=== PATIENT | female | born 1985 | race Caucasian/White ===

== ENCOUNTER 2017-06-29 17:00 | Emergency (ER) | payer SELFPAY ==
[~2017-06-29] VITALS: Ht 162.6 cm; Wt 56.0 kg
[~2017-06-29 17:00] MED LIST: DARV PO; IBUP-238 PO; Micronor PO; PREN0.01 PO
[2017-06-29 17:31] VITALS: BP 109/74; PULSE 88; RESP 18; TEMP 98.6; O2SAT 99
[2017-06-29] MEDS ORDERED: ALPR.25 PO (18:02)
--- NOTE | 2017-06-29 18:02 | RADRPT ---
EXAM DATE/TIME: 06/29/2017 17:59 [facility] COMPARISON: No previous studies available for comparison. INDICATIONS : Chest pain. MEDICAL HISTORY : None. SURGICAL HISTORY : None. ENCOUNTER: Initial ACUITY: 1 day PAIN SCORE: 4/10 LOCATION: Bilateral chest FINDINGS: Ringlike density with a lucent center Wilber over the right upper lobe, potentially related to the s econd rib versus a cavitary pulmonary nodule. CT of the chest is recommended without contrast. No infiltrate, effusion or pneumothorax. Heart size within normal limits. CONCLUSION: Possible right upper lobe pulmonary nodule and CT of the chest without contrast is recommended. The l ungs are otherwise clear. Evens Cartagena MD on June 29, 2017 at 18:00 Board Certified Radiologist. This report was verified electronically.
[2017-06-29 18:06] LABS: AUTOMATED NEUTROPHIL # 5.3 TH/MM3 (1.8-7.7); BASOPHIL % 0.5 % (0.0-2.0); EOSINOPHIL % 0.2 % (0.0-4.0); HEMO FLAGS DIFF FINAL; LYMPH % 15.3 % (9.0-44.0); LYMPHOCYTE # 1.1 TH/MM3 (1.0-4.8); MEAN CELL VOLUME 98.7 FL (80.0-100.0); MEAN CORPUSCULAR HEMOGLOBIN 33.4 PG (27.0-34.0); MEAN CORPUSCULAR HGB CONC 33.8 % (32.0-36.0); MONO % 7.4 % (0.0-8.0); NEUT % 76.6 % (16.0-70.0); PLATELET COUNT 298 TH/MM3 (150-450); RED BLOOD COUNT 3.85 MIL/MM3 (4.00-5.30); RED CELL DISTRIBUTION WIDTH 13.2 % (11.6-17.2)
--- NOTE | 2017-06-29 18:28 | PD ---
HPI Chief Complaint: Chest Pain Time Seen by Provider: 17:30 Travel History International Travel<30 days: No Contact w/Intl Traveler<30days: No Traveled to known affect area: No History of Present Illness HPI This is a 32-year-old female with a history of anxiety disorder, presents today with points of chest pain. The patient reports the pain as burning in her epigastrium. She states it comes and goes. She states that she's had it for quite some time now. She denies any exertional component. She denies any shortness of breath. She does report that she gets palpitations with this discomfort. The patient denies any tobacco history. She denies any history of hypertension, hyperlipidemia, diabetes mellitus. There is no reported family history of heart disease. The patient has no risk factors for PE. She denies any tobacco use, she denies any estrogen use, she denies any long car rides or long plane rides. She denies any previous injury to her bilateral lower extremities or previous blood clots. PFSH Past Medical History ?: Unknown LMP: NOW Social History Alcohol Use: Yes Tobacco Use: No Substance Use: No Allergies-Medications (Allergen,Severity, Reaction): Coded Allergies: No Known Allergies (Verified , 05/13/10) Reported Meds & Prescriptions Reported Meds & Active Scripts Active Ativan (Lorazepam) 0.5 Mg Tab 0.5 Mg PO Q12HR PRN Reported Xanax (Alprazolam) 0.25 Mg Tab 0.25 Mg PO Q4H PRN Review of Systems Except as stated in HPI: all other systems reviewed are Neg General / Constitutional: No: Fever, Chills HENT: No: Headaches, Lightheadedness, Neck Pain Cardiovascular: Positive: Chest Pain or Discomfort, Palpitations, No: Irregular Rhythm, Tachycardia Respiratory: No: Cough, Shortness of Breath Gastrointestinal: No: Nausea, Vomiting, Abdominal Pain Genitourinary: No: Frequency, Vaginal Bleeding Musculoskeletal: No: Weakness, Edema, Pain Skin: No Rash, No Itching Neurologic: No: Weakness, Dizziness, Headache Physical Exam Narrative GENERAL: Well-developed well nourished female in no acute distress. SKIN: Focused skin assessment warm/dry. HEAD: Atraumatic. Normocephalic. EYES: No scleral icterus. No injection or drainage. ENT: No nasal bleeding or discharge. Mucous membranes pink and moist. NECK: Trachea midline. Supple. CARDIOVASCULAR: Regular rate and rhythm. No murmur appreciated. RESPIRATORY: No accessory muscle use. Clear to auscultation. Breath sounds equal bilaterally. GASTROINTESTINAL: Abdomen soft, non-tender, nondistended. Hepatic and splenic margins not palpable. MUSCULOSKELETAL: No obvious deformities. No clubbing. No cyanosis. No edema. NEUROLOGICAL: Awake and alert. No obvious cranial nerve deficits. Motor grossly within normal limits. Normal speech. Data Data Last Documented VS Vital Signs Date Time Temp Pulse Resp B/P (MAP) Pulse Ox O2 Delivery O2 Flow Rate FiO2 06/29/17 17:54 100 Room Air 06/29/17 17:31 98.6 88 18 109/74 (86) Orders Orders Electrocardiogram (06/29/17 17:37) Complete Blood Count With Diff (06/29/17 17:37) Basic Metabolic Panel (Bmp) (06/29/17 17:37) Ckmb (Isoenzyme) Profile (06/29/17 17:37) Troponin I (06/29/17 17:37) Chest, Single Ap (06/29/17 17:37) Iv Access Insert/Monitor (06/29/17 17:37) Electrocardiogram (06/29/17 18:39) Potassium Chloride (Kcl) (06/29/17 19:00) Labs Laboratory Tests Test 06/29/17 17:50 White Blood Count 7.0 TH/MM3 Red Blood Count 3.85 MIL/MM3 Hemoglobin 12.8 GM/DL Hematocrit 38.0 % Mean Corpuscular Volume 98.7 FL Mean Corpuscular Hemoglobin 33.4 PG Mean Corpuscular Hemoglobin Concent 33.8 % Red Cell Distribution Width 13.2 % Platelet Count 298 TH/MM3 Mean Platelet Volume 8.0 FL Neutrophils (%) (Auto) 76.6 % Lymphocytes (%) (Auto) 15.3 % Monocytes (%) (Auto) 7.4 % Eosinophils (%) (Auto) 0.2 % Basophils (%) (Auto) 0.5 % Neutrophils # (Auto) 5.3 TH/MM3 Lymphocytes # (Auto) 1.1 TH/MM3 Monocytes # (Auto) 0.5 TH/MM3 Eosinophils # (Auto) 0.0 TH/MM3 Basophils # (Auto) 0.0 TH/MM3 CBC Comment DIFF FINAL Differential Comment Blood Urea Nitrogen 16 MG/DL Creatinine 0.83 MG/DL Random Glucose 94 MG/DL Calcium Level 8.8 MG/DL Sodium Level 141 MEQ/L Potassium Level 3.4 MEQ/L Chloride Level 107 MEQ/L Carbon Dioxide Level 25.7 MEQ/L Anion Gap 8 MEQ/L Estimat Glomerular Filtration Rate 80 ML/MIN Total Creatine Kinase 40 U/L Troponin I LESS THAN 0.02 NG/ML MDM Medical Decision Making Medical Screen Exam Complete: Yes Emergency Medical Condition: Yes Differential Diagnosis ACS versus GERD versus anxiety Narrative Course This is a 32-year-old female who presents today with complaints of palpitations and chest pain. Patient reports it as a burning sensation in her epigastrium and substernal area. The patient also reports associated palpitations when she has this discomfort. The patient does report having anxiety for which she takes Xanax. Discussed with her that Xanax often causes an acute onset and offset. I stated if she has chronic anxiety she should likely be taking something is longer acting. EKG and cardiac enzymes show no evidence of acute findings. She does have a potassium of 3.4. She's been given 10 mEq of potassium chloride times one dose. She'll be discharged with a prescription for Ativan and told not to drink alcohol or take Xanax while taking this medication. She states she will follow up with her primary care doctor, Dr. Wynn, for an outpatient stress test. I did offer to put her chest pain center however she has elected not to stay and will follow up as an outpatient with Dr. Wynn. I did recommend increasing her potassium rich foods including bananas, green leafy vegetables and citrus. She is instructed to avoid drinking 3-4 beers at night. She is also instructed to follow up with a counselor for her anxiety. She will be given a prescription for Ativan, 0.5 mg , total of 14 tablets. She is instructed that she'll need to get further refills from her primary care physician. Diagnosis Primary Impression: Atypical chest pain Additional Impressions: mild hypokalemia. Anxiety disorder Additional Instructions: Do not drink alcohol or take Xanax all taking Ativan. The membrane Ativan is a longer acting benzodiazepine and will be in her system longer than the Xanax. Follow up with her primary care physician for further cardiac outpatient testing. Return if not feeling well or any other reason that concerned her. Thank you for choosing [facility], we know you have a choice and healthcare. Med/Other Pt SpecificInfo: Prescription(s) given Scripts Lorazepam (Ativan) 0.5 Mg Tab 0.5 MG PO Q12HR Y for ANXIETY AND/OR AGITATION, #14 TAB 0 Refills Prov: Darin Vega MD 06/29/17 Disposition: 01 DISCHARGE HOME Condition: Stable Darin Vega MD Jun 29, 2017 18:28
[2017-06-29 18:31] LABS: ANION GAP 8 MEQ/L (5-15); BICARBONATE 25.7 MEQ/L (21.0-32.0); BLOOD UREA NITROGEN 16 MG/DL (7-18); CHLORIDE 107 MEQ/L (98-107); GLOMERULAR FILTRATION RATE 80 ML/MIN (>89); POTASSIUM 3.4 MEQ/L (3.5-5.1); SODIUM (NA) 141 MEQ/L (136-145)
[2017-06-29 18:36] LABS: CREATINE KINASE 40 U/L (26-192)
[2017-06-29] MEDS ORDERED: LORA-392 PO (18:58)
[2017-06-29] MEDS ORDERED: POTASSIUM CHLORIDE 10 MEQ CONTROLLED RELEASE TAB PO ONE (19:00)
[2017-06-29 19:01] VITALS: BP 121/63
--- NOTE | 2017-06-30 14:31 | EKG ---
Date Performed: 06/29/2017 Time Performed: 18:43:14 PTAGE: 32 years EKG: Sinus rhythm NORMAL ECG Compared to prior tracing no significant change PREVIOUS TRACING DOCTOR: Austin Harding Interpretating Date/Time 06/30/2017 14:30:12
--- NOTE | 2017-06-30 17:54 | EKG ---
Date Performed: 06/29/2017 Time Performed: 17:13:35 PTAGE: 32 years EKG: Sinus rhythm NORMAL EKG NO PREVIOUS TRACING DOCTOR: Austin Harding Interpretating Date/Time 06/30/2017 17:53:38
== END 2017-06-29 19:30 | disposition home or self-care (01) ==
LOC: NEPC 17:00
DX: R07.89 Other chest pain (principal); E87.6 Hypokalemia; F41.9 Anxiety disorder, unspecified
CPT/HCPCS: 71010; 80048; 82550; 84484; 85025; 93005; 99285

== ENCOUNTER 2017-10-29 18:52 | Emergency (ER) | payer OTHER ==
[~2017-10-29 18:52] MED LIST changes: +ALPR.25 PO; -DARV PO; -IBUP-238 PO; +LORA-392 PO; -Micronor PO; -PREN0.01 PO
[2017-10-29 18:53] VITALS: BP 124/67; PULSE 104; RESP 16; TEMP 97.9; O2SAT 100
--- NOTE | 2017-10-29 22:44 | RADRPT ---
EXAM DATE/TIME: 10/29/2017 22:20 [facility] COMPARISON: No previous studies available for comparison. INDICATIONS : Headache. RADIATION DOSE: 35.95 CTDIvol (mGy) MEDICAL HISTORY : None SURGICAL HISTORY : None. ENCOUNTER: Initial ACUITY: 1 day PAIN SCALE: 6/10 LOCATION: cranial TECHNIQUE: Multiple contiguous axial images were obtained of the head. Using automated exposure control and adj ustment of the mA and/or kV according to patient size, radiation dose was kept as low as reasonably a chievable to obtain optimal diagnostic quality images. DICOM format image data is available electro nically for review and comparison. FINDINGS: CEREBRUM: The ventricles are normal for age. No evidence of midline shift, mass lesion, hemorrhage or acute in farction. No extra-axial fluid collections are seen. POSTERIOR FOSSA: The cerebellum and brainstem are intact. The 4th ventricle is midline. The cerebellopontine angle i s unremarkable. EXTRACRANIAL: The visualized portion of the orbits is intact. SKULL: The calvaria is intact. No evidence of skull fracture. CONCLUSION: 1. No acute intracranial abnormalities. Arun Dior MD on October 29, 2017 at 22:41 Board Certified Radiologist. This report was verified electronically.
--- NOTE | 2017-10-29 23:05 | PD ---
HPI Chief Complaint: Headache Time Seen by Provider: 21:27 Travel History International Travel<30 days: No Contact w/Intl Traveler<30days: No Traveled to known affect area: No History of Present Illness HPI 32-year-old female presents to the emergency department for headache since Wednesday. Patient rates her headache 7-8/10 in intensity. Patient is smiling and animated and talking to friends who is at bedside. Patient reports she is asked she had headache longer than 2-3 days that she's had this for several months or longer. Patient was seen by her primary care provider who identified that she might have a sinus infection and placed her on a seven-day course of Bactrim which she completed on 26 October. Patient states that she also denied any intention in her scalp about the same time that she started the antibiotic and that the intention has improved since starting the antibiotic. Patient states she took a one-time dose of ibuprofen 800 mg yesterday with minimal response and has taken this before with improved response but because of the minimal response this today decided follow today to come to the emergency room to be evaluated. Headache is not sudden onset not thunderclap not worst ever. Patient denies any photophobia or phonophobia or arm. No family members with history of headache or subarachnoid hemorrhage. Patient denies any fever or chills. Patient denies . Patient is unable to identify exacerbating or alleviating factors. Patient's had no nausea or vomiting. Patient denies neck pain or stiffness. Patient denies injury. PFSH Past Medical History Narrative Medical Anxiety 1 para 1 AB 0 occasional alcohol use: Nursing notes reviewed Anxiety: Yes (last attack 07/09/17-no meds since 08/10) Headaches: Yes (ongoing for 1 month but increased this week 10/29/17) Tetanus Vaccination: Unknown Influenza Vaccination: No ?: Not LMP: 09/28/17 : 1 Para: 1 Miscarriage: 0 : 0 Past Surgical History Surgical History: No Previous Surgery Social History Alcohol Use: Yes (socially; last drink 3wks) Tobacco Use: No Substance Use: No Allergies-Medications (Allergen,Severity, Reaction): Coded Allergies: No Known Allergies (Verified , 05/13/10) Reported Meds & Prescriptions Reported Meds & Active Scripts Active Ativan (Lorazepam) 0.5 Mg Tab 0.5 Mg PO Q12HR PRN Reported Xanax (Alprazolam) 0.25 Mg Tab 0.25 Mg PO Q4H PRN Review of Systems Except as stated in HPI: all other systems reviewed are Neg Physical Exam Narrative GENERAL: Well-developed well-nourished female in no acute distress no respiratory distress; GCS 15 SKIN: Warm and dry. HEAD: Atraumatic. Normocephalic. EYES: Pupils equal and round. No scleral icterus. No injection or drainage. ENT: No nasal bleeding or discharge. Mucous membranes pink and moist. NECK: Trachea midline. No JVD. CARDIOVASCULAR: Regular rate and rhythm. RESPIRATORY: No accessory muscle use. Clear to auscultation. Breath sounds equal bilaterally. GASTROINTESTINAL: Abdomen soft, non-tender, nondistended. Hepatic and splenic margins not palpable. MUSCULOSKELETAL: Extremities without clubbing, cyanosis, or edema. No obvious deformities. NEUROLOGICAL: Awake and alert. No obvious cranial nerve deficits. Motor grossly within normal limits. Five out of 5 muscle strength in the arms and legs. No pronator drift. No limb ataxia. Sensory exam intact. DTRs 2+ and equal bilaterally upper extremity lower extremity as tested. Normal speech. PSYCHIATRIC: Appropriate mood and affect; insight and judgment normal. Data Data Last Documented VS Vital Signs Date Time Temp Pulse Resp B/P (MAP) Pulse Ox O2 Delivery O2 Flow Rate FiO2 10/29/17 22:00 Room Air 10/29/17 18:53 97.9 104 16 124/67 (86) [address] Brain W/O Iv Contrast(Rout) (10/29/17 ) Ed Urine Pregnancytest Poc (10/29/17 21:27) Ketorolac Inj (Toradol Inj) (10/29/17 23:30) MDM Medical Decision Making Medical Screen Exam Complete: Yes Emergency Medical Condition: Yes Medical Record Reviewed: Yes Interpretation(s) Last Impressions Head CT 10/29/17 0000 Signed Impressions: Service Date/Time: Sunday, October 29, 2017 22:20 - CONCLUSION: 1. No acute intracranial abnormalities. Arun Dior MD Vital Signs Date Time Temp Pulse Resp B/P (MAP) Pulse Ox O2 Delivery O2 Flow Rate FiO2 10/29/17 22:00 Room Air 10/29/17 18:53 97.9 104 16 124/67 (86) 100 Room Air Differential Diagnosis Cephalgia-- tension, versus sinusitis versus viral syndrome versus atypical migraine versus mass; patient is afebrile has had no meningismus unlikely meningitis headache is not sudden onset thunderclap or worst ever unlikely subarachnoid hemorrhage Narrative Course CT brain noncontrast ordered Patient resting comfortably animated talking with significant other and appears to be in no distress CT brain noncontrast resulted and found to be read as no acute process Patient informed of imaging study offered a dose of Toradol which she agrees to have administered Patient is stable for outpatient management encouraged to follow-up with neurologist for ongoing headache of unclear etiology. Diagnosis Primary Impression: Head pain cephalgia Qualified Codes: G44.219 - Episodic tension-type headache, not intractable Referrals: Neurologist call for appointment Patient Instructions: General Instructions Additional Instructions: Follow-up with your primary care provider Follow-up with neurologist May take ibuprofen 600 mg as often as every 6 hours up to 800 mg as often as every 8 hours as needed for headache Return to the emergency department for worsening of symptoms fever vomiting or any concerns Disposition: 01 DISCHARGE HOME Condition: Stable Pati Fabian MD Oct 29, 2017 23:05
[2017-10-29] MEDS ORDERED: KETOROLAC TROMETHAMINE 60 MG/2 ML (IM) VIAL IM ONE (23:30)
== END 2017-10-30 00:41 | disposition home or self-care (01) ==
LOC: NEPC 18:52
DX: G44.219 Episodic tension-type headache, not intractable (principal); F41.9 Anxiety disorder, unspecified
CPT/HCPCS: 70450; 84703; 96372; 99284; J1885

== ENCOUNTER 2017-10-30 16:53 | Emergency (ER) | payer OTHER ==
[~2017-10-30] VITALS: Ht 162.6 cm; Wt 55.0 kg
[2017-10-30 16:55] VITALS: BP 132/63; PULSE 124; RESP 14; TEMP 99.3; O2SAT 99
--- NOTE | 2017-10-30 17:55 | PD ---
HPI Chief Complaint: Numbness/Tingling Time Seen by Provider: 17:30 Travel History International Travel<30 days: No Contact w/Intl Traveler<30days: No Traveled to known affect area: No History of Present Illness HPI [place] woman presents to the emergency department without plethora of complaints. She states that she had a headache yesterday. The headache came on all she was at work. She had a headache the day before but it went away. Did not appear to be thunderclap in onset. She was seen yesterday and given Toradol and had a CT scan of her head because she was apparently worried that she had a tumor. Today she states she still feels an unusual discomfort and fullness in her head, some aching discomfort in her left arm, as well as some tingling in her left arm, and tingling on the left side of her face. She has a history of anxiety. She's had panic attacks in the past including chest pain. She is otherwise well. History Past Medical History Narrative Medical Anxiety LMP: 09/29/17 : 1 Para: 1 Social History Alcohol Use: Yes (socially; last drink 3wks) Tobacco Use: No Allergies-Medications (Allergen,Severity, Reaction): Coded Allergies: No Known Allergies (Verified , 05/13/10) Reported Meds & Prescriptions Reported Meds & Active Scripts Active Ativan (Lorazepam) 0.5 Mg Tab 0.5 Mg PO Q12HR PRN Reported Xanax (Alprazolam) 0.25 Mg Tab 0.25 Mg PO Q4H PRN Review of Systems Except as stated in HPI: all other systems reviewed are Neg Physical Exam Narrative GENERAL: Well-appearing 32-year-old woman, no acute distress. SKIN: Focused skin assessment warm/dry. HEAD: Atraumatic. Normocephalic. EYES: Pupils equal and round. No scleral icterus. No injection or drainage. ENT: No nasal bleeding or discharge. Mucous membranes pink and moist. NECK: Trachea midline. No JVD. CARDIOVASCULAR: Regular rate and rhythm. No murmur appreciated. RESPIRATORY: No accessory muscle use. Clear to auscultation. Breath sounds equal bilaterally. GASTROINTESTINAL: Abdomen soft, non-tender, nondistended. Hepatic and splenic margins not palpable. MUSCULOSKELETAL: No obvious deformities. No clubbing. No cyanosis. No edema. NEUROLOGICAL: Awake and alert. Cranial nerves II through XII are intact. Sensations intact and equal in the face. Strength full and equal upper and lower she is. Normal for her nose. Normal gait. She describes some subjective sensory changes in the upper left arm that she describes as feeling it more in the left arm. PSYCHIATRIC: Appropriate mood and affect; insight and judgment normal. Data Data Last Documented VS Vital Signs Date Time Temp Pulse Resp B/P (MAP) Pulse Ox O2 Delivery O2 Flow Rate FiO2 10/30/17 16:55 99.3 124 14 132/63 (86) 99 Orders Orders Ed Discharge Order (10/30/17 17:55) [facility] Medical Decision Making Medical Screen Exam Complete: Yes Emergency Medical Condition: Yes Differential Diagnosis Anxiety, complex migraine, aneurysm, tumor, other Narrative Course Medical decision making This is a 32 year-old woman presents to the emergency department with multiple unusual symptoms. She is worried that she has an aneurysm because she's been looking online. She states she came in yesterday with headache. She was worried that she had a tumor. Should the CT scan yesterday that was normal. She has a very benign neurologic exam. All his symptoms are unusual, I don't think that they're pointing toward malignancy aneurysm or demyelinating disease. I think there is likely a strong component of anxiety. Possibly complex migraine or some other confounder. Nonetheless, had a long discussion with the patient. I don't think she'll benefit from any further evaluation at this time. They shocked her watch out for any hard neurologic findings such as weakness. She'll return for any new symptoms. Diagnosis Primary Impression: Numbness and tingling Additional Impression: Anxiety Additional Instructions: Follow-up with her primary physician for further evaluation. Return to the emergency department for any worsening numbness, tingling, weakness, or any other new or worsening symptoms. Med/Other Pt SpecificInfo: No Change to Meds Disposition: 01 DISCHARGE HOME Condition: Stable Calin Freemna MD Oct 30, 2017 17:55
== END 2017-10-30 19:35 | disposition home or self-care (01) ==
LOC: NEPD 16:53
DX: R20.0 Anesthesia of skin (principal); R20.2 Paresthesia of skin; F41.9 Anxiety disorder, unspecified; R51 Headache; F41.0 Panic disorder [episodic paroxysmal anxiety]; R07.9 Chest pain, unspecified
CPT/HCPCS: 99281